=== PATIENT | female | born 2000 | race Caucasian/White ===

== ENCOUNTER 2023-11-29 00:34 | Emergency (ER) | payer OTHER, SELFPAY ==
--- NOTE | ~2023-11-29 | XR_ITS ---
Clinical Indication: Chest pain PA and lateral views of the chest: Comparison: None Findings: The lungs are clear, without evidence of focal consolidation or pleural effusion. Cardiome diastinal silhouette is within normal limits. Bones and soft tissues are unremarkable. Impression: Normal chest. Reviewed, dictated and finalized at location . Impression: Normal chest.
[2023-11-29 00:41] VITALS: BP 136/93; PULSE 102; RESP 13; O2SAT 100
--- NOTE | 2023-11-29 00:41 | ECG_ITS ---
Test Date: 2023-11-29 00:45:02 Measurements Intervals [place] Rate: 96 P: 74 DE: 139 QRS: 74 QRSD: 74 T: 50 QT: 335 QTc: 425 Interpretive Statements SINUS RHYTHM WITH SINUS ARRHYTHMIA POSSIBLE LEFT ATRIAL ENLARGEMENT BASELINE ARTIFACT- I, II, III, AVR, AVL, AVF BORDERLINE ECG No previous ECG available for comparison Electronically Signed On 11-29-2023 05:55:04 CDT by Chung Cardenas D.O.
--- NOTE | 2023-11-29 00:51 | ED.GENADULT ---
HPI - General Adult General Chief complaint: Unspecified Stated complaint: high blood pressure Time Seen by Provider: 11/29/23 00:42 History of Present Illness HPI narrative: 23-year-old female with a reported history of ulcerative colitis and anemia presents to the emergency department for lightheadedness and chest pain. Patient states around 1999 today she began feeling lightheaded like she was going to pass out. She is eating a cake while this happen. States the symptoms have not resolved and later when she laid down to go to bed she began having pain in her ?chest?. When asked her where her pain is she points to her epigastrium. She states prior to eating cake she had a smash burger at a restaurant. She reports nausea and 1 episode of emesis. She states the pain in her chest is sharp and nonradiating. She does endorse some shortness of breath. She denies cough or congestion, hemoptysis, history of VTE, recent surgeries or hospitalizations. She denies fever, abdominal pain. She does endorse that diarrhea but states this is unchanged from her baseline. She denies melena or hematochezia. Related Data Allergies Allergy/AdvReac Type Severity Reaction Status Date / Time No Known Allergies Allergy Verified 11/29/23 18:25 Review of Systems Review of Systems: All systems reviewed & are unremarkable except as noted in HPI and below Exam Narrative: GENERAL: Well-appearing, well-nourished, and in no acute distress. HEAD: Normocephalic, atraumatic. EYES: PERRLA and EOMI. ENT: Nares clear, no rhinorrhea or epistaxis. Mucous membranes moist. NECK: Supple. CHEST: Clear to auscultation. No respiratory distress. HEART: Regular rate and rhythm. No murmur heard. Normal peripheral pulses. ABDOMEN: Normoactive bowel sounds. Abdomen soft with minimal tenderness in epigastrium. No rebound, guarding or rigidity. No CVA tenderness EXTREMITIES: Normal range of motion. No edema. Negative Homans bilateral SKIN: Warm, dry, no rash. NEURO: No focal deficits. Alert and oriented x3 Course Vital Signs Vital signs: Vital Signs Pulse Rate 102 H 11/29/23 00:41 Respiratory Rate 13 11/29/23 00:41 Blood Pressure 136/93 H 11/29/23 00:41 Pulse Oximetry 100 11/29/23 00:41 Oxygen Delivery Room Air 07/19/24 00:41 Pulse Rate 91 11/29/23 04:49 Respiratory Rate 16 11/29/23 04:49 Blood Pressure 134/78 11/29/23 04:49 Pulse Oximetry 100 11/29/23 04:49 Oxygen Delivery Room Air 11/29/23 00:41 Medical Decision Making MDM Narrative Medical decision making narrative: 23-year-old female with reported history of ulcerative colitis and anemia presents to the emergency department for lightheadedness that occurred at 2000 today and chest pain that occurred prior to arrival. Triage vital significant for mild tachycardia 102, otherwise unremarkable. Exam significant for the above. EKG shows sinus rhythm with sinus arrhythmia, rate of 96, normal [place] interval, normal QRS duration, normal QTC, no ischemic changes. Troponin undetectable. CBC with leukocytosis of 16.2, no bandemia. Chemistries are unremarkable. Urinalysis with small hematuria, no UTI. Chest x-ray unremarkable. D-dimer normal at 0.21, wells score is low risk. Overall, I suspect patient's symptoms are secondary to GERD/ gastritis and possible anxiety. She received Pepcid and GI cocktail with improvement in symptoms. She was sent home with a script for Pepcid advised follow-up with her PCP. Strict ED return precautions discussed. She is agreeable to plan verbalized understanding. Discharged in stable condition. Vital Signs Vital Signs: Vital Signs Pulse Rate 102 H 11/29/23 00:41 Respiratory Rate 13 11/29/23 00:41 Blood Pressure 136/93 H 11/29/23 00:41 Pulse Oximetry 100 11/29/23 00:41 Oxygen Delivery Room Air 11/29/23 00:41 Pulse Rate 91 11/29/23 04:49 Respiratory Rate 16 11/29/23 04:49 Blood Pressure 134/78 11/29/23 0
[2023-11-29] MEDS: SODIUM CHLORIDE 0.9% IV 1,000 ML 999 ML IV CONT (00:57)
[2023-11-29] MEDS: BELLADONNA ALK/PHENOB ELIX 10 ML, MAG HYDROX/ALUMINUM HYD/SIMETH 30 ML, LIDOCAINE HCL 2... PO (00:59)
[2023-11-29] MEDS: FAMOTIDINE 20 MG/2 ML VIAL IV PUSH (00:59)
[2023-11-29 01:06] LABS: Basophils Absolute Auto 0.1 K/mm3 (0.0-0.1); Basophils Percent Auto 0.4 % (0.2-1.2); Eosinophils Absolute Auto 0.2 K/mm3 (0-0.3); Hematocrit 37.2 % (37.0-47.0); Hemoglobin 12.7 g/dL (12.0-15.0); Immature Granulocyte Absolute 0.09 K/mm3 (0.00-0.031); Immature Granulocyte Percent A 0.6 % (0-0.5); Lymphocytes Absolute Auto 3.72 K/mm3 (0.9-3.2); Mean Corpuscular HGB Conc 34.1 g/dl (32-36); Mean Corpuscular Volume 87.7 fl (80-100); Mean Platelet Volume 8.6 fl (7.4-10.4); Monocytes Absolute Auto 0.9 K/mm3 (0.1-0.6); Monocytes Percent Auto 5.8 % (2.6-8.5); Neutrophils Absolute Auto 11.2 K/mm3 (1.3-6.7); Neutrophils Percent Auto 69.2 % (45.5-73.1); Platelet Count Result 360 k/mm3 (150-375); Red Blood Count 4.24 M/mm3 (4.2-5.4); White Blood Count 16.2 K/mm3 (4.5-10.0)
[2023-11-29 03:34] LABS: Appearance Urine Clear (Clear); Bacteria Urine None Seen /hpf; Bilirubin Urine Negative (Negative); Blood Urine 1+ (Negative); Color Urine Yellow (Yellow); Glucose Urine UA Negative (Negative); INR 0.9; Ketones Urine Negative (Negative); Leukocyte Esterase Ur Negative LEU/UL (Negative); Nitrate Urine Negative (Negative); Non Pathogenic Casts 0-2; Partial Thromboplastin Time 26.5 Seconds (22.3-36.8); Protein Urine Negative (Negative); Prothrombin Time 12.4 Seconds (11.1-14.7); Specific Grav Ur 1.004 (1.001-1.035); Squamous Epithelial Cell Urine None Seen /hpf (Few); Urobilinogen Urine 0.2 mg/dL (<2.0); WBC Urine 0-5 /hpf (0-3); pH Urine 7.5 (5.0-9.0)
[2023-11-29 03:46] LABS: D Dimer < 0.27 ug/mL (<0.48)
[2023-11-29 03:57] LABS: Add Urine Microscopic? YES
[2023-11-29 04:02] LABS: Alanine Aminotransferase 12 U/L (6-35); Albumin Level 4.9 g/dL (3.5-5.1); Alkaline Phosphatase 56 U/L (38-126); Anion Gap 11 mmol/L (4-12); Aspartate Amino Transferase 19 U/L (14-36); Bilirubin,Total 0.7 mg/dL (0.2-1.3); Blood Urea Nitrogen 12 mg/dL (7-17); Calcium 9.8 mg/dL (8.4-10.2); Carbon Dioxide 22 mmol/L (22-30); Chloride 106 mmol/L (98-107); Estimated CRCL calculation 105 ml/min; Estimated Glomerular Filt Rate > 60; Glucose 96 mg/dL (65-110); Magnesium 2.1 mg/dL (1.6-2.3); Potassium 3.8 mmol/L (3.4-5.0); Sodium 139 mmol/L (137-145); Troponin I < 0.012 ng/mL (0.000-0.034)
[2023-11-29 04:49] VITALS: BP 134/78; PULSE 91; RESP 16; O2SAT 100
== END 2023-11-29 04:50 | disposition home or self-care (01) ==
PROVIDERS: Emergency Provider Physician Assistant; PCP Emergency Medicine
DX: R10.13 Epigastric pain (principal); K51.90 Ulcerative colitis, unspecified, without complications; R94.31 Abnormal electrocardiogram [ECG] [EKG]
CPT/HCPCS: 36415; 71046; 80053; 81001; 81025; 83735; 84484; 85025; 85380; 85610; 85730; 93005; 96361; 96374; 99284; A9270; J7030

== ENCOUNTER 2023-11-29 17:50 | Emergency (ER) | payer OTHER, SELFPAY ==
[2023-11-29 18:13] VITALS: BP 143/100; PULSE 100; RESP 22; TEMP 36.7; O2SAT 100
--- NOTE | 2023-11-29 18:21 | ED.GENADULT ---
HPI - General Adult General Chief complaint: Recheck/Abnormal Lab/Rx Stated complaint: HTN Time Seen by Provider: 11/29/23 19:03 23-year-old the history of ulcerative colitis that she states is managed with medical marijuana presents to the emergency room for evaluation of lightheadedness and high blood pressure . Patient states that she was at [facility] earlier today taking her blood pressure multiple times concerned that her pressure was high. Of complaining of left arm numbness as result of this. Patient states that she has had a headache for 2 weeks. Reports several weeks ago was seen at an outside emergency room diagnosed with mono, she was placed on 2 weeks of 40 mg prednisone. States the headache started when she was on the prednisone. Patient also reports was seen at the 3rd emergency room for abdominal pain was diagnosed with a ruptured ovarian cyst. Presently she does not endorse abdominal pain, nausea vomiting or diarrhea. Patient was seen in this emergency room at 12:45 a.m., and left before workup was completed Related Data Allergies Allergy/AdvReac Type Severity Reaction Status Date / Time No Known Allergies Allergy Verified 11/29/23 18:25 Course Vital Signs Vital signs: Vital Signs Temperature 36.7 C 11/29/23 18:13 Pulse Rate 100 11/29/23 18:13 Respiratory Rate 22 H 11/29/23 18:13 Blood Pressure 143/100 H 11/29/23 18:13 Pulse Oximetry 100 11/29/23 18:13 Oxygen Delivery Room Air 11/29/23 18:13 Temperature 36.7 C 11/29/23 18:13 Pulse Rate 100 11/29/23 18:13 Respiratory Rate 22 H 11/29/23 18:13 Blood Pressure 143/100 H 11/29/23 18:13 Pulse Oximetry 100 11/29/23 18:13 Oxygen Delivery Room Air 11/29/23 18:13 Medical Decision Making Vital Signs Vital Signs: Vital Signs Temperature 36.7 C 11/29/23 18:13 Pulse Rate 100 11/29/23 18:13 Respiratory Rate 22 H 11/29/23 18:13 Blood Pressure 143/100 H 11/29/23 18:13 Pulse Oximetry 100 11/29/23 18:13 Oxygen Delivery Room Air 11/29/23 18:13 Temperature 36.7 C 11/29/23 18:13 Pulse Rate 100 07/19/24 18:13 Respiratory Rate 22 H 11/29/23 18:13 Blood Pressure 143/100 H 11/29/23 18:13 Pulse Oximetry 100 11/29/23 18:13 Oxygen Delivery Room Air 11/29/23 18:13 Lab Data Labs: Lab Results 11/29/23 Range/Units 18:23 Urine Opiates Screen Negative (Negative) Urine Methadone Screen Negative (Negative) Ur Barbiturates Screen Negative (Negative) Ur Phencyclidine Scrn Negative (Negative) Ur Amphetamine Screen Negative (Negative) U Benzodiazepines Scrn Negative (Negative) Urine Cocaine Screen Negative (Negative) U Cannabinoids Screen Positive A (Negative) Discharge Plan Discharge Clinical Impression: Tension headache, Anxiety Patient Disposition: Home, Self-Care Condition: Stable Instructions: Antibiotic Form, Acute Headache (DC), Anxiety (ED) Additional Instructions: Please take Motrin/Tylenol for headache. Please discontinue the steroid use. Please follow-up at your primary care physician appointment on the . Return to ED if your headache becomes severe, you develop weakness or slurred speech, or you feel like your condition is getting worse. Follow-up/Referrals: Jason Stack MD [Primary Care Provider] -
[2023-11-29 18:46] LABS: Amphetamine Screen Urine Negative (Negative); Barbiturate Screen Urine Negative (Negative); Benzodiazepines Screen Urine Negative (Negative); Cannabinoid Screen Urine Positive (Negative); Cocaine Screen Urine Negative (Negative); Methadone Screen Urine Negative (Negative); Opiate Screen Urine Negative (Negative); Phencyclidine Screen Urine Negative (Negative)
--- NOTE | 2023-11-29 19:29 | ED.GENADULT ---
HPI - General Adult General Chief complaint: Recheck/Abnormal Lab/Rx Stated complaint: HTN Time Seen by Provider: 11/29/23 19:03 History of Present Illness HPI narrative: A 23-year-old female history of anxiety presenting for a headache. Patient was diagnosed with mono earlier in the month. She was started on a course of prednisone which has significantly increased her anxiety. Since then she has been seen multiple he is for multiple this is complaints. She notes that she has been on steroids in the past for her ulcerative colitis it has also worsened her anxiety significantly. At the moment the patient is complaining a squeezing headache. It is gradual onset. Not associated with physical activity trauma or falls consciousness. No neurologic deficits. She has not taken anything for her headache. Patient is also concerned about her blood pressure. She was at [facility] using automated device take her blood pressure multiple times. After that she developed tingling in her left arm which is the arm her BP was being taken on. Related Data Allergies Allergy/AdvReac Type Severity Reaction Status Date / Time No Known Allergies Allergy Verified 11/29/23 18:25 Exam Narrative: APPEARANCE: patient is very anxious, she is tearful during the interview Head: atraumatic. EYES: EOMI, NOSE: Atraumatic NECK: Trachea midline RESPIRATORY: No increased rate of breathing, clear to auscultation CARDIOVASCULAR: RRR, no peripheral edema ABDOMINAL: Non-distended MUSCULOSKELETAl: No obvious deformities NEURO: Alert. Cranial nerves 2-12 grossly intact. Sensation light touch, motor function cerebellar function intact for 4 extremities. Gait exam was normal. SKIN:: Warm, dry. Normal color PSYCHIATRIC: Normal affect Course Vital Signs Vital signs: Vital Signs Temperature 98.1 F 11/29/23 18:13 Pulse Rate 100 11/29/23 18:13 Respiratory Rate 22 H 11/29/23 18:13 Blood Pressure 143/100 H 11/29/23 18:13 Pulse Oximetry 100 11/29/23 18:13 Oxygen Delivery Room Air 11/29/23 18:13 Temperature 98.1 F 11/29/23 18:13 Pulse Rate 100 11/29/23 18:13 Respiratory Rate 22 H 11/29/23 18:13 Blood Pressure 143/100 H 11/29/23 18:13 Pulse Oximetry 100 11/29/23 18:13 Oxygen Delivery Room Air 11/29/23 18:13 Medical Decision Making MDM Narrative Medical decision making narrative: -Course: 23-year-old female presenting with a complaint of headache. In reality I think that she is having significant amount of health-related anxiety due to her recent mono diagnosis that has been exacerbated by her steroid use. Patient be given a migraine cocktail with improvement in her headache. patient will follow-up with her primary care physician for further management. She has been instructed to discontinue the steroids as she does not appear to tolerate them very well. patient has appointment with primary care physician on the . -DDX includes but is not limited to: Tension headache, migraine, anxiety, -Co-morbidities complicating care: anxiety -Interventions:compazine, benadryl, tylenol, motrin -Shared decision making / Disposition: discharged Vital Signs Vital Signs: Vital Signs Temperature 98.1 F 11/29/23 18:13 Pulse Rate 100 11/29/23 18:13 Respiratory Rate 22 H 11/29/23 18:13 Blood Pressure 143/100 H 11/29/23 18:13 Pulse Oximetry 100 11/29/23 18:13 Oxygen Delivery Room Air 11/29/23 18:13 Temperature 98.1 F 11/29/23 18:13 Pulse Rate 100 11/29/23 18:13 Respiratory Rate 22 H 11/29/23 18:13 Blood Pressure 143/100 H 11/29/23 18:13 Pulse Oximetry 100 11/29/23 18:13 Oxygen Delivery Room Air 11/29/23 18:13 Lab Data Labs: Lab Results 11/29/23 Range/Units 18:23 Urine Opiates Screen Negative (Negative) Urine Methadone Screen Negative (Negative) Ur Barbiturates Screen Negative (Negative) Ur Phencyclidine Scrn Negative (Negative) Ur Amphetamine Sc
[2023-11-29] MEDS: ACETAMINOPHEN 500 MG TABLET 1000 MG PO (19:43)
[2023-11-29] MEDS: diphenhydrAMINE HCl INJ 50 MG/ML VIAL 25 MG IM (19:43)
[2023-11-29] MEDS: IBUPROFEN 400 MG TABLET 800 MG PO (19:43)
[2023-11-29] MEDS: PROCHLORPERAZINE EDISYLATE 10 MG/2 ML VIAL IM (19:44)
== END 2023-11-29 20:49 | disposition home or self-care (01) ==
LOC: ANHED 19:41
PROVIDERS: Nurse Practitioner Family; Emergency Provider Emergency Medicine; PCP Emergency Medicine
DX: G44.209 Tension-type headache, unspecified, not intractable (principal); F41.9 Anxiety disorder, unspecified; Z79.52 Long term (current) use of systemic steroids
CPT/HCPCS: 36415; 71046; 80053; 80307; 81001; 81025; 83735; 84484; 85025; 85380; 85610; 85730; 93005; 96361; 96372; 96374; 99284; A9270; J0780; J1200; J7030